=== PATIENT | male | born 1940 | race Caucasian/White ===

== ENCOUNTER 2019-03-06 00:52 | Inpatient (IN) | payer MEDICARE, BC, MEDICAID ==
[~2019-03-06] VITALS: Ht 175.3 cm; Wt 71.1 kg
[~2019-03-06 00:52] MED LIST: ACET325T45 PO; AZIT250T13 PO; DIVA-73 PO; DONE10TA7 PO; FINA5TAB4 PO; HALO5TAB23 PO; IPRA3AMP29 INHALATION; MEGE400O2 PO; MELA3TAB29 PO; MEMA5TAB14 PO; MULT-105 PO; OMEP1CAP24 PO; PANT20TA3 PO; POLY17PO28 PO; POTA20TA96 PO; PROT946L PO; SERT-165 PO; SIME80TA60 PO; TAMS-14 PO; ZOLP5TAB7 PO; [UNRECOGNIZED DRUG - CODE] PO
[2019-03-06] MEDS ORDERED: SODIUM CHLORIDE 0.9% 1L BAG IV* STA (00:54)
[2019-03-06] MEDS ORDERED: CEFEPIME 2GM/50 ML (PMX) 50 ML IVPB STA (00:54)
[2019-03-06] MEDS ORDERED: ACETAMINOPHEN 650 MG SUPP PR STA (00:54)
[2019-03-06] MEDS ORDERED: VANCOMYCIN 1 GM (PMX) 250 ML IVPB ONE (01:00)
[2019-03-06] MEDS ORDERED: ONDANSETRON 4 MG INJ IV PRN (04:00)
[2019-03-06] MEDS ORDERED: ACETAMINOPHEN 325 MG TAB PO PRN ×2 (04:00→09:00)
[2019-03-06 07:49] VITALS: BMI 21.5
[2019-03-06 08:22] VITALS: BP 116/82; PULSE 76; RESP 17
[2019-03-06] MEDS: PANTOPRAZOLE SODIUM 20 MG TABEC PO SCH (09:00)
[2019-03-06] MEDS: HALOPERIDOL 5 MG TAB PO SCH ×3 (09:00→22:30)
[2019-03-06] MEDS ORDERED: ZOLPIDEM 5 MG TAB PO PRN (09:00)
[2019-03-06] MEDS ORDERED: POLYETHYLENE GLYCOL 17 GM PACKET PO PRN (09:00)
[2019-03-06] MEDS: FINASTERIDE 5 MG TAB PO SCH (09:00)
[2019-03-06] MEDS: MEGESTROL (40 MG/ML) 10ML CUP PO SCH (09:00)
[2019-03-06] MEDS: MEMANTINE 5 MG TAB PO SCH ×2 (09:00→22:30)
[2019-03-06] MEDS ORDERED: VANCOMYCIN IV PER PHARMACY XX SCH (09:30)
[2019-03-06] MEDS: DEXTROSE 5% 1,000 ML IV SCH ×2 (11:39→22:50)
[2019-03-06] MEDS: POTASSIUM CHLORIDE 100 ML IVPB SCH ×2 (11:39→16:19)
[2019-03-06] MEDS: CEFEPIME 1GM/50 ML (PMX) 50 ML IVPB SCH ×2 (11:52→22:26)
[2019-03-06] MEDS: ALBUTEROL/IPRATROPIUM (NEB) 3 ML AMP NEB SCH ×3 (12:07→21:28)
[2019-03-06 14:52] VITALS: BP 124/58; PULSE 74
[2019-03-06 20:00] VITALS: BP 103/52; PULSE 79; RESP 19
[2019-03-06] MEDS: TAMSULOSIN (SR) 0.4 MG CAP PO SCH (22:30)
[2019-03-06] MEDS: DONEPEZIL 10 MG TAB PO SCH (22:30)
[2019-03-06] MEDS: DIVALPROEX (ER) 250 MG TAB PO SCH (22:30)
[2019-03-07] MEDS: DEXTROSE 5% 1,000 ML IV SCH (01:08)
[2019-03-07] MEDS: ALBUTEROL/IPRATROPIUM (NEB) 3 ML AMP NEB SCH ×4 (02:19→19:28)
[2019-03-07 02:46] VITALS: BP 118/80; PULSE 79
[2019-03-07] MEDS ORDERED: POTASSIUM CHLORIDE (SR) 20 MEQ TAB PO ONE (06:45)
[2019-03-07] MEDS: HALOPERIDOL 5 MG TAB PO SCH ×3 (08:09→20:59)
[2019-03-07] MEDS: MEMANTINE 5 MG TAB PO SCH ×2 (08:10→20:59)
[2019-03-07] MEDS: FINASTERIDE 5 MG TAB PO SCH (08:10)
[2019-03-07] MEDS: PANTOPRAZOLE SODIUM 20 MG TABEC PO SCH (08:10)
[2019-03-07] MEDS: MEGESTROL (40 MG/ML) 10ML CUP PO SCH (08:11)
[2019-03-07] MEDS: CEFEPIME 1GM/50 ML (PMX) 50 ML IVPB SCH ×2 (08:11→20:57)
[2019-03-07 08:26] VITALS: BP 134/63; PULSE 81; RESP 18
[2019-03-07] MEDS: D5W + KCL 20 MEQ 1,000 ML IV SCH ×2 (09:07→19:37)
[2019-03-07] MEDS: POTASSIUM CHLORIDE 100 ML IVPB SCH ×2 (09:07→11:35)
[2019-03-07 11:30] VITALS: Ht 175.3 cm; Wt 71.1 kg
[2019-03-07] MEDS ORDERED: VANCOMYCIN 1 GM 250 ML IVPB SCH (13:00)
[2019-03-07 14:00] VITALS: BP 114/55; PULSE 81; RESP 17
[2019-03-07] MEDS: FLUCONAZOLE 100 MG TAB PO SCH (16:16)
[2019-03-07] MEDS: BALSAM PERU/CASTOR OIL 60 GM TUBE TOP SCH ×2 (16:17→20:59)
[2019-03-07 20:00] VITALS: BP 127/69; PULSE 68; RESP 18
[2019-03-07] MEDS: DIVALPROEX (ER) 250 MG TAB PO SCH (20:59)
[2019-03-07] MEDS: TAMSULOSIN (SR) 0.4 MG CAP PO SCH (20:59)
[2019-03-07] MEDS: DONEPEZIL 10 MG TAB PO SCH (20:59)
[2019-03-08] MEDS: ALBUTEROL/IPRATROPIUM (NEB) 3 ML AMP NEB SCH ×4 (01:21→19:37)
[2019-03-08 01:52] VITALS: BP 131/60; PULSE 69; RESP 18
[2019-03-08] MEDS: D5W + KCL 20 MEQ 1,000 ML IV SCH ×4 (04:00→16:35)
[2019-03-08 07:41] VITALS: BP 133/62; PULSE 55; RESP 18
[2019-03-08] MEDS: FLUCONAZOLE 100 MG TAB PO SCH (09:10)
[2019-03-08] MEDS: MEGESTROL (40 MG/ML) 10ML CUP PO SCH (09:10)
[2019-03-08] MEDS: CEFEPIME 1GM/50 ML (PMX) 50 ML IVPB SCH ×2 (09:10→21:19)
[2019-03-08] MEDS: HALOPERIDOL 5 MG TAB PO SCH ×3 (09:11→21:21)
[2019-03-08] MEDS: MEMANTINE 5 MG TAB PO SCH ×2 (09:11→21:22)
[2019-03-08] MEDS: BALSAM PERU/CASTOR OIL 60 GM TUBE TOP SCH ×2 (09:11→21:22)
[2019-03-08] MEDS: PANTOPRAZOLE SODIUM 20 MG TABEC PO SCH (09:11)
[2019-03-08] MEDS: FINASTERIDE 5 MG TAB PO SCH (09:11)
[2019-03-08 13:35] VITALS: BP 101/50; PULSE 52; RESP 18
[2019-03-08 21:07] VITALS: BP 111/54; PULSE 63; RESP 17
[2019-03-08] MEDS: DIVALPROEX (ER) 250 MG TAB PO SCH (21:21)
[2019-03-08] MEDS: DONEPEZIL 10 MG TAB PO SCH (21:21)
[2019-03-08] MEDS: TAMSULOSIN (SR) 0.4 MG CAP PO SCH (21:22)
[2019-03-09] MEDS: ALBUTEROL/IPRATROPIUM (NEB) 3 ML AMP NEB SCH ×4 (01:29→19:38)
[2019-03-09] MEDS ORDERED: VANCOMYCIN 1 GM 250 ML IVPB SCH (02:00)
[2019-03-09] MEDS: D5W + KCL 20 MEQ 1,000 ML IV SCH ×4 (02:00→12:39)
[2019-03-09 03:35] VITALS: BP 113/66; PULSE 67; RESP 18
[2019-03-09 07:27] VITALS: BP 120/57; PULSE 52; RESP 19
[2019-03-09] MEDS ORDERED: POTASSIUM CHLORIDE (SR) 20 MEQ TAB PO STA (08:50)
[2019-03-09] MEDS: CEFEPIME 1GM/50 ML (PMX) 50 ML IVPB SCH (09:10)
[2019-03-09] MEDS: HALOPERIDOL 5 MG TAB PO SCH ×3 (09:11→21:09)
[2019-03-09] MEDS: FINASTERIDE 5 MG TAB PO SCH (09:11)
[2019-03-09] MEDS: FLUCONAZOLE 100 MG TAB PO SCH (09:11)
[2019-03-09] MEDS: PANTOPRAZOLE SODIUM 20 MG TABEC PO SCH (09:11)
[2019-03-09] MEDS: MEMANTINE 5 MG TAB PO SCH ×2 (09:11→21:10)
[2019-03-09] MEDS: MEGESTROL (40 MG/ML) 10ML CUP PO SCH (09:11)
[2019-03-09] MEDS: BALSAM PERU/CASTOR OIL 60 GM TUBE TOP SCH ×2 (09:12→21:10)
[2019-03-09] MEDS: PIPER-TAZO 2.25 GM (PMX) 50 ML IVPB SCH ×3 (12:36→23:44)
[2019-03-09 14:00] VITALS: BP 130/58; PULSE 51; RESP 17
[2019-03-09 19:27] VITALS: BP 128/59; PULSE 74; RESP 17
[2019-03-09] MEDS: DIVALPROEX (ER) 250 MG TAB PO SCH (21:10)
[2019-03-09] MEDS: TAMSULOSIN (SR) 0.4 MG CAP PO SCH (21:10)
[2019-03-09] MEDS: DONEPEZIL 10 MG TAB PO SCH (21:10)
[2019-03-10 00:58] VITALS: BP 125/60; PULSE 71; RESP 17
[2019-03-10] MEDS: D5W + KCL 20 MEQ 1,000 ML IV SCH ×2 (01:12→05:26)
[2019-03-10] MEDS: ALBUTEROL/IPRATROPIUM (NEB) 3 ML AMP NEB SCH ×4 (01:30→20:28)
[2019-03-10] MEDS: PIPER-TAZO 2.25 GM (PMX) 50 ML IVPB SCH ×4 (05:26→23:32)
[2019-03-10 07:48] VITALS: BP 114/54; PULSE 60; RESP 18
[2019-03-10] MEDS: FINASTERIDE 5 MG TAB PO SCH (09:08)
[2019-03-10] MEDS: PANTOPRAZOLE SODIUM 20 MG TABEC PO SCH (09:08)
[2019-03-10] MEDS: FLUCONAZOLE 100 MG TAB PO SCH (09:08)
[2019-03-10] MEDS: MEMANTINE 5 MG TAB PO SCH ×2 (09:08→21:43)
[2019-03-10] MEDS: HALOPERIDOL 5 MG TAB PO SCH ×3 (09:08→21:44)
[2019-03-10] MEDS: BALSAM PERU/CASTOR OIL 60 GM TUBE TOP SCH ×2 (09:09→21:44)
[2019-03-10] MEDS: MEGESTROL (40 MG/ML) 10ML CUP PO SCH (09:09)
[2019-03-10 13:58] VITALS: BP 115/61; PULSE 72; RESP 18
[2019-03-10 15:00] VITALS: RESP 16
[2019-03-10 19:30] VITALS: BP 113/55; PULSE 84; RESP 17
[2019-03-10] MEDS: DIVALPROEX (ER) 250 MG TAB PO SCH (21:43)
[2019-03-10] MEDS: TAMSULOSIN (SR) 0.4 MG CAP PO SCH (21:43)
[2019-03-10] MEDS: DONEPEZIL 10 MG TAB PO SCH (21:44)
[2019-03-11 01:21] VITALS: BP 115/57; PULSE 67; RESP 17
[2019-03-11] MEDS: ALBUTEROL/IPRATROPIUM (NEB) 3 ML AMP NEB SCH ×3 (01:24→20:30)
[2019-03-11] MEDS: PIPER-TAZO 2.25 GM (PMX) 50 ML IVPB SCH ×4 (05:57→23:46)
[2019-03-11 07:26] VITALS: BP 127/59; PULSE 59; RESP 16
[2019-03-11] MEDS ORDERED: POTASSIUM CHLORIDE (SR) 20 MEQ TAB PO STA (07:29)
[2019-03-11] MEDS: HALOPERIDOL 5 MG TAB PO SCH ×3 (08:22→22:02)
[2019-03-11] MEDS: FLUCONAZOLE 100 MG TAB PO SCH (08:22)
[2019-03-11] MEDS: D5W-0.45 NACL + KCL 20 MEQ 1,000 ML IV SCH (08:22)
[2019-03-11] MEDS: MEMANTINE 5 MG TAB PO SCH ×2 (08:23→22:02)
[2019-03-11] MEDS: MEGESTROL (40 MG/ML) 10ML CUP PO SCH (08:23)
[2019-03-11] MEDS: PANTOPRAZOLE SODIUM 20 MG TABEC PO SCH (08:24)
[2019-03-11] MEDS: BALSAM PERU/CASTOR OIL 60 GM TUBE TOP SCH ×2 (08:24→22:03)
[2019-03-11] MEDS: FINASTERIDE 5 MG TAB PO SCH (08:24)
[2019-03-11] MEDS: COLLAGENASE 5 GM (UD JAR) TOP SCH (08:30)
[2019-03-11] MEDS: POTASSIUM CHLORIDE 100 ML IVPB SCH ×2 (08:41→12:24)
[2019-03-11 13:59] VITALS: BP 116/61; PULSE 75; RESP 18
[2019-03-11 19:30] VITALS: BP 119/60; PULSE 57; RESP 17
[2019-03-11] MEDS: DIVALPROEX (ER) 250 MG TAB PO SCH (22:02)
[2019-03-11] MEDS: TAMSULOSIN (SR) 0.4 MG CAP PO SCH (22:03)
[2019-03-11] MEDS: DONEPEZIL 10 MG TAB PO SCH (22:03)
[2019-03-12] MEDS: ALBUTEROL/IPRATROPIUM (NEB) 3 ML AMP NEB SCH ×4 (01:06→19:17)
[2019-03-12 01:53] VITALS: BP 119/56; PULSE 81; RESP 17
[2019-03-12] MEDS: PIPER-TAZO 2.25 GM (PMX) 50 ML IVPB SCH ×3 (05:52→17:35)
[2019-03-12] MEDS: D5W-0.45 NACL + KCL 20 MEQ 1,000 ML IV SCH (05:52)
[2019-03-12 07:34] VITALS: BP 131/61; PULSE 61; RESP 17
[2019-03-12] MEDS: MEGESTROL (40 MG/ML) 10ML CUP PO SCH (09:25)
[2019-03-12] MEDS: FINASTERIDE 5 MG TAB PO SCH (09:25)
[2019-03-12] MEDS: HALOPERIDOL 5 MG TAB PO SCH ×3 (09:25→21:19)
[2019-03-12] MEDS: MEMANTINE 5 MG TAB PO SCH ×2 (09:25→21:18)
[2019-03-12] MEDS: PANTOPRAZOLE SODIUM 20 MG TABEC PO SCH (09:25)
[2019-03-12] MEDS: BALSAM PERU/CASTOR OIL 60 GM TUBE TOP SCH ×2 (09:26→21:19)
[2019-03-12] MEDS: FLUCONAZOLE 100 MG TAB PO SCH (09:26)
[2019-03-12] MEDS: COLLAGENASE 5 GM (UD JAR) TOP SCH (09:26)
[2019-03-12 14:26] VITALS: BP 103/55; PULSE 78; RESP 20
[2019-03-12 20:00] VITALS: BP 120/56; PULSE 65; RESP 19
[2019-03-12] MEDS: DONEPEZIL 10 MG TAB PO SCH (21:18)
[2019-03-12] MEDS: TAMSULOSIN (SR) 0.4 MG CAP PO SCH (21:18)
[2019-03-12] MEDS: DIVALPROEX (ER) 250 MG TAB PO SCH (21:18)
[2019-03-13] MEDS: PIPER-TAZO 2.25 GM (PMX) 50 ML IVPB SCH ×4 (00:31→17:56)
[2019-03-13 02:00] VITALS: BP 108/55; PULSE 58; RESP 18
[2019-03-13] MEDS: ALBUTEROL/IPRATROPIUM (NEB) 3 ML AMP NEB SCH ×4 (02:15→19:38)
[2019-03-13] MEDS: D5W-0.45 NACL + KCL 20 MEQ 1,000 ML IV SCH (05:17)
[2019-03-13 07:26] VITALS: BP 122/60; PULSE 68; RESP 20
[2019-03-13] MEDS: HALOPERIDOL 5 MG TAB PO SCH ×3 (08:48→21:35)
[2019-03-13] MEDS: MEGESTROL (40 MG/ML) 10ML CUP PO SCH (08:48)
[2019-03-13] MEDS: PANTOPRAZOLE SODIUM 20 MG TABEC PO SCH (08:48)
[2019-03-13] MEDS: FLUCONAZOLE 100 MG TAB PO SCH (08:48)
[2019-03-13] MEDS: MEMANTINE 5 MG TAB PO SCH ×2 (08:48→21:34)
[2019-03-13] MEDS: FINASTERIDE 5 MG TAB PO SCH (08:48)
[2019-03-13] MEDS: BALSAM PERU/CASTOR OIL 60 GM TUBE TOP SCH ×2 (08:49→21:37)
[2019-03-13] MEDS: COLLAGENASE 5 GM (UD JAR) TOP SCH (08:55)
[2019-03-13 14:09] VITALS: BP 115/57; PULSE 68; RESP 18
[2019-03-13 20:00] VITALS: BP 119/56; PULSE 73; RESP 18
[2019-03-13] MEDS: DONEPEZIL 10 MG TAB PO SCH (21:34)
[2019-03-13] MEDS: TAMSULOSIN (SR) 0.4 MG CAP PO SCH (21:35)
[2019-03-13] MEDS: DIVALPROEX (ER) 250 MG TAB PO SCH (21:36)
[2019-03-14] MEDS: ALBUTEROL/IPRATROPIUM (NEB) 3 ML AMP NEB SCH ×4 (01:20→20:20)
[2019-03-14 02:03] VITALS: BP 108/55; PULSE 65; RESP 16
[2019-03-14] MEDS: D5W-0.45 NACL + KCL 20 MEQ 1,000 ML IV SCH (05:45)
[2019-03-14 07:40] VITALS: BP 131/60; PULSE 60; RESP 19
[2019-03-14] MEDS ORDERED: D5W-0.45 NACL + KCL 20 MEQ 1,000 ML IV SCH (08:30)
[2019-03-14] MEDS: MEMANTINE 5 MG TAB PO SCH ×2 (08:58→20:08)
[2019-03-14] MEDS: PANTOPRAZOLE SODIUM 20 MG TABEC PO SCH (08:58)
[2019-03-14] MEDS: FINASTERIDE 5 MG TAB PO SCH (08:58)
[2019-03-14] MEDS: HALOPERIDOL 5 MG TAB PO SCH ×3 (08:59→20:09)
[2019-03-14] MEDS: COLLAGENASE 5 GM (UD JAR) TOP SCH (08:59)
[2019-03-14] MEDS: MEGESTROL (40 MG/ML) 10ML CUP PO SCH (08:59)
[2019-03-14] MEDS: BALSAM PERU/CASTOR OIL 60 GM TUBE TOP SCH ×2 (09:00→20:10)
[2019-03-14 14:33] VITALS: BP 122/58; PULSE 68; RESP 18
[2019-03-14 20:00] VITALS: BP 129/61; PULSE 69; RESP 18
[2019-03-14] MEDS: TAMSULOSIN (SR) 0.4 MG CAP PO SCH (20:09)
[2019-03-14] MEDS: DIVALPROEX (ER) 250 MG TAB PO SCH (20:09)
[2019-03-14] MEDS: DONEPEZIL 10 MG TAB PO SCH (20:09)
== END 2019-03-14 21:05 | DRG 871 ==
LOC: E/R 00:52 → 2NE 03:33
PROVIDERS: ADMIT Internal Medicine; ATTEND Internal Medicine
DX: A41.9 Sepsis, unspecified organism (principal); J69.0 Pneumonitis due to inhalation of food and vomit; G92 Toxic encephalopathy; N39.0 Urinary tract infection, site not specified; N17.9 Acute kidney failure, unspecified; E87.1 Hypo-osmolality and hyponatremia; E87.2 Acidosis; K59.31 Toxic megacolon; N18.4 Chronic kidney disease, stage 4 (severe); E87.0 Hyperosmolality and hypernatremia; E86.0 Dehydration; E87.70 Fluid overload, unspecified; E83.42 Hypomagnesemia; D64.9 Anemia, unspecified; G30.9 Alzheimer's disease, unspecified; F02.80 Dementia in other diseases classified elsewhere, unspecified severity, without behavioral disturbance, psychotic disturbance, mood disturbance, and anxiety; E87.6 Hypokalemia; N40.1 Benign prostatic hyperplasia with lower urinary tract symptoms; F29 Unspecified psychosis not due to a substance or known physiological condition; D50.9 Iron deficiency anemia, unspecified; B95.2 Enterococcus as the cause of diseases classified elsewhere; Z66 Do not resuscitate; L89.150 Pressure ulcer of sacral region, unstageable; L89.620 Pressure ulcer of left heel, unstageable; K21.9 Gastro-esophageal reflux disease without esophagitis; N31.2 Flaccid neuropathic bladder, not elsewhere classified
CPT/HCPCS: 36415; 70450; 71045; 74176; 80048; 80053; 80164; 80202; 81001; 82607; 83605; 83735; 84100; 84145; 84443; 84484; 85025; 85610; 85730; 87045; 87086; 92526; 92610; 93005; 94640; 94664; 96374; 96375; J0692; J2543; J3370; J3480; J7030; J7070